=== PATIENT | female | born 1975 | race Caucasian/White ===

== ENCOUNTER 2017-12-08 02:05 | Emergency (ER) | payer OTHER ==
[~2017-12-08] VITALS: Ht 175.3 cm; Wt 90.7 kg
[2017-12-08] MEDS ORDERED: CYMBALTA60 MG PO (02:47)
[2017-12-08] MEDS ORDERED: ASPIR 8181 MG PO (02:47)
[2017-12-08] MEDS ORDERED: LORATIDINE 10 M10 M1 PO (02:48)
[2017-12-08] MEDS ORDERED: IRBESARTAN75 MG PO (02:48)
[2017-12-08] MEDS ORDERED: CRESTOR20 MG PO (02:49)
[2017-12-08] MEDS ORDERED: PHILLIPS' COLO1 EACH PO (02:49)
[2017-12-08] MEDS ORDERED: NOVOLOG100 UNIT/1 SUBQ ×2 (02:51→02:54)
[2017-12-08] MEDS ORDERED: LEVAQUIN 500 M500 M2 PO (02:52)
[2017-12-08] MEDS ORDERED: IPRAT-ALBUT 0.5-3 ML INH (02:53)
[2017-12-08] MEDS ORDERED: NYAMYC15 GM TOP (02:54)
[2017-12-08] MEDS ORDERED: MIRALAX17 GM PO (02:55)
[2017-12-08] MEDS ORDERED: VOLTAREN GEL 1100 GM TOP (02:56)
[2017-12-08] MEDS ORDERED: ARTIFICIAL TEA1 EACH (02:57)
[2017-12-08] MEDS ORDERED: ANTI-ITCH28 G1 TOP (02:57)
[2017-12-08] MEDS ORDERED: MILK OF MA400 MG/5 M PO (02:58)
[2017-12-08] MEDS ORDERED: TESSALON PERLE100 MG PO (02:58)
[2017-12-08] MEDS ORDERED: ZOFRAN4 MG PO (02:59)
[2017-12-08] MEDS ORDERED: KEFLEX500 M1 PO (03:01)
[2017-12-08] MEDS ORDERED: TRAMADOL 50 MG50 MG PO (03:01)
[2017-12-08 04:25] VITALS: BP 132/74
== END 2017-12-08 06:03 | disposition home or self-care (01) ==
LOC: ER 02:05 → EDBD 02:05 → ER 06:03
DX: S63.257A Unspecified dislocation of left little finger, initial encounter (principal); S80.01XA Contusion of right knee, initial encounter; S50.311A Abrasion of right elbow, initial encounter; W17.89XA Other fall from one level to another, initial encounter; Y93.89 Activity, other specified; Y92.89 Other specified places as the place of occurrence of the external cause; Y99.8 Other external cause status

== ENCOUNTER 2018-03-28 13:30 | Inpatient (IN) | payer OTHER ==
[2018-03-28] VITALS (14 sets, daily range): BP systolic 125–180; BP diastolic 61–96
[~2018-03-28] VITALS: Ht 160 cm; Wt 84.1 kg
--- NOTE | ~2018-03-28 | EKG ---
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
--- NOTE | ~2018-03-28 | HC ---
[facility] [place] [address] CONSULTATION Name: SEBLEVALENTINO Room #: 349-I ADM IN .R.#: [id number] Admission: 03/28/18 Attend Phys: Jacky Woods MD Discharge: Date of : 75 Report #: [id number] THIS REPORT FOR: //name// CC: Jacky Woods [facility] physician/PCP DATE OF SERVICE: 03/30/2018 INFECTIOUS DISEASE CONSULTATION: REASON FOR CONSULTATION: I was asked to evaluate concerning hemoptysis in the setting of right lung aspergillosis. HISTORY OF PRESENT ILLNESS: The patient is a 42-year-old who typically gets her care at [facility], is admitted with increasing hemoptysis. About a year ago, was diagnosed with pneumonia. She had a cavitary right upper lobe lesion. Several months ago, was diagnosed with aspergillosis involving the right upper lobe. This was diagnosed from bronchoscopy where she had a biopsy performed. She states that Aspergillus was identified from the tissue. She was treated with voriconazole. The specific duration is not yet clear at this point. She has been on 200 mg b.i.d. Denies any fever, chills or sweats. She has had about a 10-pound weight loss over the last 6 months. She has had significant amount of bloody sputum production. Because of her hemoptysis, she was admitted through the Emergency Room. No pleuritic chest pain. No dyspnea. Appetite has been reasonable. No aspiration symptoms. Denies any previous underlying lung disease, although she states she had asthma at age 88 years old but grew out of this. She is a smoker of cigarettes, having recently stopped her usage. No alcohol use or aspiration episodes noted. ALLERGIES: None known. MEDICATIONS: As noted on her MAR, now on vancomycin, meropenem and voriconazole. PAST MEDICAL HISTORY: Schizoaffective disorder, depression, obesity, gastroesophageal reflux, diabetes and hyperlipidemia. FAMILY HISTORY: Noncontributory. SOCIAL HISTORY: As noted above. She now resides in a fci. REVIEW OF SYSTEMS: CONSTITUTIONAL: Denies any fever, chills or sweats. EYES: No visual changes. Tolerating voriconazole without issue. EARS: No change in her hearing or tinnitus. MOUTH: Without lesion, pharyngitis symptoms, dental issues. [address] [address] CONSULTATION Name: VALENTINO PRUETT [facility] .R.#: [id number] Admission: 03/28/18 Attend Phys: Jacky Woods MD Discharge: Date of : 75 Report #: [id number] LYMPH: Negative. RESPIRATORY: As above. CARDIOVASCULAR: Without palpitations, syncope, peripheral edema. GASTROINTESTINAL: Negative. GENITOURINARY: Negative. JOINTS: Negative. SKIN: Without rash. NEUROLOGIC: Negative. PSYCHIATRIC: No symptoms of depression or anxiety at this point. PHYSICAL EXAMINATION: GENERAL: Alert and cooperative. She is a good historian. No evidence of anxiety or depression. Well developed, well nourished, appeared her stated age. VITAL SIGNS: Stable with no hypertension. SKIN: Without rash. HEENT: Eyes without scleral icterus or conjunctivitis. Mouth without lesion or mucositis. NECK: Supple, no thyromegaly or mass. LYMPH: No palpable adenopathy. LUNGS: Clear bilaterally with no consolidation or rub. HEART: Regular, without murmur, gallop or rub. ABDOMEN: Soft, nontender, no hepatosplenomegaly or mass. Moderately obese. EXTREMITIES: No peripheral edema. No cyanosis. Did have some changes of venous stasis disease involving her pretibial skin. NEUROLOGIC: Alert and cooperative. Cranial nerves intact. Strength in upper and lower extremities normal. Sensation normal. PSYCHIATRIC: Normal mood. LABORATORY STUDIES: Sputum cultures pending. Blood cultures are negative to date. Hemoglobin 8, platelet count 347,000, WBC 3.9, 74% segs. Sodium 138, potassium 4, bicarbonate 26, creatinine 0.7. Vancomycin trough was 14. MRSA screen negative. Urinalysis unremarkable. CT scan of the chest showed right upper lobe cavitary lesion about 8 x 8 cm of pulmonary infiltrate with cavitation. IMPRESSION: 1. Chronic cavitary aspergillosis right upper lobe with associated hemoptysis. Had not seen the tissue diagnosis from [facility] yet. Had not seen her microbiology reports yet. I am suspecting this is the cause of her hemoptysis. Underlying tobacco use by history. 2. Gastroesophageal reflux. 3. Depression, schizoaffective disorder. 4. Obesity. 5. Diabetes. RECOMMENDATION: We will continue antibiotic coverage in addition to her [facility] [address] [place] [address] CONSULTATION Name: VALENTINO PRUETT Room #: 349-I ADM IN ..#: [id number] Admission: 03/28/18 Attend Phys: Jacky Woods MD Discharge: Date of : 75 Report #: [id number] antifungal coverage. I would like to confirm her diagnosis from the studies done at [facility]. Agree with having cardiothoracic surgical evaluation. May also consider embolization of the area of bleeding as a first line before attempting lung resection. We will discuss further with Pulmonary Medicine. <ELECTRONICALLY SIGNED> By: Nando Gross MD 03/31/18 0839 1307 [id number] Nando Gross MD /nt
[~2018-03-28 13:30] MED LIST: ANTI-ITCH28 G1 TOP; ARTIFICIAL TEA1 EACH; ASPIR 8181 MG PO; CRESTOR20 MG PO; CYMBALTA60 MG PO; IPRAT-ALBUT 0.5-3 ML INH; IRBESARTAN75 MG PO; KEFLEX500 M1 PO; LEVAQUIN 500 M500 M2 PO; LORATIDINE 10 M10 M1 PO; MILK OF MA400 MG/5 M PO; MIRALAX17 GM PO; NOVOLOG100 UNIT/1 SUBQ; NYAMYC15 GM TOP; PHILLIPS' COLO1 EACH PO; TESSALON PERLE100 MG PO; TRAMADOL 50 MG50 MG PO; VOLTAREN GEL 1100 GM TOP; ZOFRAN4 MG PO
[2018-03-28 15:11] LABS: URINE BILIRUBIN NEGATIVE (Negative); URINE BLOOD NEGATIVE (Negative); URINE CLARITY CLEAR; URINE COLOR YELLOW; URINE GLUCOSE-RANDOM* NEGATIVE (Negative); URINE KETONES NEGATIVE (Negative); URINE LEUKOCYTES-REFLEX NEGATIVE (Negative); URINE NITRITE-REFLEX NEGATIVE (Negative); URINE PROTEIN (DIPSTICK) NEGATIVE (Negative); URINE UROBILINOGEN 0.2 E.U./dl (0.2-1.0)
[2018-03-28 15:13] LABS: HEMATOCRIT 29.3 % (37.0-47.0); HEMOGLOBIN 9.5 gm/dL (12.0-15.0); MCH 26.9 pg (26.0-34.0); MCHC 32.6 g/dL (28.0-37.0); MCV 82.5 fL (80.0-100.0); PLATELET COUNT 412 thou/uL (150-400); RBC 3.55 mil/uL (4.20-5.00); RDW 20.7 % (10.5-14.5); WBC 5.3 thou/uL (4.0-11.0)
[2018-03-28 15:27] LABS: ANION GAP 6 mmol/L (7-16); BUN 11 mg/dL (7-18); CALCIUM 9.3 mg/dL (8.5-10.1); CHLORIDE 104 mmol/L (98-107); CO2 29 mmol/L (21-32); CREATININE 0.8 mg/dL (0.6-1.0); POTASSIUM 3.7 mmol/L (3.5-5.1); SODIUM 139 mmol/L (136-145)
[2018-03-28 15:29] LABS: GLUCOSE 31 mg/dL (74-106); PROTIME 10.7 Seconds (9.3-11.4)
[2018-03-28 15:36] LABS: ALBUMIN 3.2 g/dL (3.4-5.0); SGOT 12 U/L (15-37); SGPT 16 U/L (30-65); TOTAL BILIRUBIN 0.2 mg/dL (<0.1-1.0); TOTAL PROTEIN 7.5 g/dL (6.4-8.2); TROPONIN-I <0.06 ng/mL (<0.06)
[2018-03-28 15:41] LABS: ABSOLUTE NEUTROPHILS 1.9 thou/uL (1.4-8.2)
[2018-03-28 15:42] LABS: ANISOCYTOSIS 2+
[2018-03-28 18:18] LABS: HEMATOCRIT 25.1 % (37.0-47.0); HEMOGLOBIN 8.3 gm/dL (12.0-15.0)
[2018-03-28] MEDS ORDERED: LAMICTAL 25 MG25 M1 PO (22:30)
[2018-03-28] MEDS ORDERED: VFEND 200 MG T200 M1 PO (22:33)
[2018-03-28] MEDS ORDERED: ASPIRIN81 M2 PO (22:34)
[2018-03-28] MEDS ORDERED: REMERON15 MG PO (22:36)
[2018-03-28] MEDS ORDERED: QUETIAPINE FUM100 MG PO (22:37)
[2018-03-28] MEDS ORDERED: ZANTAC 150MG T150 MG PO (22:38)
[2018-03-28] MEDS ORDERED: HUMALOG100 UNIT/1 SUBQ ×2 (22:41→22:53)
[2018-03-28] MEDS ORDERED: LANTUS SUBQ (22:43)
[2018-03-28] MEDS ORDERED: TYLENOL325 MG PO (22:44)
[2018-03-28] MEDS ORDERED: VOLTAREN GEL 1100 G2 TOP (22:46)
[2018-03-28] MEDS ORDERED: HYDROCODONE-ACE15 ML PO (22:49)
[2018-03-28] MEDS ORDERED: LUBRICANT 0.5-1 EACH OPHTHALMIC (22:51)
[2018-03-28] MEDS ORDERED: AMBIEN 5 MG TABL5 M1 PO (22:54)
[2018-03-29] VITALS (16 sets, daily range): BP systolic 104–147; BP diastolic 54–86
[2018-03-29 03:55] LABS: CALCIUM 8.6 mg/dL (8.5-10.1); CREATININE 0.8 mg/dL (0.6-1.0); POTASSIUM 3.8 mmol/L (3.5-5.1)
[2018-03-29 04:34] LABS: HEMATOCRIT 26.6 % (37.0-47.0); HEMOGLOBIN 8.4 gm/dL (12.0-15.0); MCH 26.5 pg (26.0-34.0); MCHC 31.7 g/dL (28.0-37.0); MCV 83.7 fL (80.0-100.0); PLATELET COUNT 364 thou/uL (150-400); RBC 3.17 mil/uL (4.20-5.00); RDW 20.9 % (10.5-14.5); WBC 4.4 thou/uL (4.0-11.0)
[2018-03-29 05:14] LABS: ABSOLUTE NEUTROPHILS 1.8 thou/uL (1.4-8.2); ANISOCYTOSIS 2+; ATYPICAL LYMPHS 2 %; LARGE PLATELETS FEW
[2018-03-30 03:55] VITALS: BP 112/63
[2018-03-30 07:14] LABS: ABSOLUTE NEUTROPHILS 2.9 thou/uL (1.4-8.2); BASOPHILS 0.1 % (0.0-2.0); HEMATOCRIT 25.4 % (37.0-47.0); LYMPHOCYTES 18.2 % (24.0-44.0); MCH 26.2 pg (26.0-34.0); MCHC 31.3 g/dL (28.0-37.0); MONOCYTES 7.5 % (1.0-8.0); PLATELET COUNT 347 thou/uL (150-400); POLYS 74.2 % (36.0-66.0); RBC 3.03 mil/uL (4.20-5.00); RDW 21.2 % (10.5-14.5); WBC 3.9 thou/uL (4.0-11.0)
[2018-03-30 07:15] VITALS: BP 119/70
[2018-03-30 07:16] LABS: CALCIUM 8.9 mg/dL (8.5-10.1); CREATININE 0.7 mg/dL (0.6-1.0)
[2018-03-30 08:51] LABS: ANISOCYTOSIS 1+; PLATELET ESTIMATE NORMAL
[2018-03-30 11:31] VITALS: BP 124/60
[2018-03-30 15:22] VITALS: BP 102/57
[2018-03-30 19:20] VITALS: BP 123/63
[2018-03-31 04:15] VITALS: BP 126/71
[2018-03-31 07:30] VITALS: BP 112/66
[2018-03-31 11:39] VITALS: BP 141/69
[2018-03-31 15:25] VITALS: BP 148/78
[2018-03-31 16:55] VITALS: BP 145/82
[2018-03-31 19:10] VITALS: BP 121/61
[2018-04-01 04:00] VITALS: BP 118/78
[2018-04-01 08:23] VITALS: BP 131/80
[2018-04-01 13:08] VITALS: BP 124/74
[2018-04-01 18:13] VITALS: BP 119/77
[2018-04-01 18:22] VITALS: BP 127/69
[2018-04-01 19:20] VITALS: BP 120/67
[2018-04-02] VITALS (7 sets, daily range): BP systolic 117–165; BP diastolic 69–95
[2018-04-02 06:26] LABS: HEMATOCRIT 26.9 % (37.0-47.0); HEMOGLOBIN 8.7 gm/dL (12.0-15.0); MCH 27.1 pg (26.0-34.0); MCHC 32.4 g/dL (28.0-37.0); MCV 83.4 fL (80.0-100.0); PLATELET COUNT 277 thou/uL (150-400); RBC 3.22 mil/uL (4.20-5.00); RDW 21.4 % (10.5-14.5); WBC 6.4 thou/uL (4.0-11.0)
[2018-04-02 07:46] LABS: ABSOLUTE NEUTROPHILS 3.3 thou/uL (1.4-8.2); ANISOCYTOSIS 2+; METAMYELOCYTES 1 %; NUCLEATED RBCS 2 /100WBC; POLYCHROMASIA SLIGHT
[2018-04-03 04:44] VITALS: BP 136/84
[2018-04-03 07:32] VITALS: BP 109/58
[2018-04-03 10:44] VITALS: BP 119/75
[2018-04-03 17:04] VITALS: BP 131/65
== END 2018-04-03 17:22 | DRG 867 ==
LOC: ER 13:30 → EROBS 16:25 → 2N 18:13 → ICU 21:18 → 3W 03-29 16:01
PROVIDERS: Hospitalist; Physician Assistant
PROC: B54MZZA Ultrasonography of Right Upper Extremity Veins, Guidance (ICD-10-PCS; principal; 2018-03-29)
PROC: 05HB33Z Insertion of Infusion Device into Right Basilic Vein, Percutaneous Approach (ICD-10-PCS; principal; 2018-03-29)
DX: B44.89 Other forms of aspergillosis (principal); J96.01 Acute respiratory failure with hypoxia; D62 Acute posthemorrhagic anemia; R04.2 Hemoptysis; E66.9 Obesity, unspecified; K21.9 Gastro-esophageal reflux disease without esophagitis; E78.5 Hyperlipidemia, unspecified; E11.649 Type 2 diabetes mellitus with hypoglycemia without coma; F25.0 Schizoaffective disorder, bipolar type; Z79.82 Long term (current) use of aspirin; Z79.899 Other long term (current) drug therapy; Z28.21 Immunization not carried out because of patient refusal; Z68.32 Body mass index [BMI] 32.0-32.9, adult
CPT/HCPCS: 10078; 10879; 27000

== ENCOUNTER → 2018-07-21 | Outpatient (CLI) | payer OTHER ==
[~2018-07-21] MED LIST changes: +AMBIEN 5 MG TABL5 M1 PO; +ASPIRIN81 M2 PO; +HUMALOG100 UNIT/1 SUBQ; +HYDROCODONE-ACE15 ML PO; +LAMICTAL 25 MG25 M1 PO; +LANTUS SUBQ; +LUBRICANT 0.5-1 EACH OPHTHALMIC; +QUETIAPINE FUM100 MG PO; +REMERON15 MG PO; +TYLENOL325 MG PO; +VFEND 200 MG T200 M1 PO; +VOLTAREN GEL 1100 G2 TOP; +ZANTAC 150MG T150 MG PO
== END ==
LOC: RAD 11:42
DX: J90 Pleural effusion, not elsewhere classified (principal); S22.42XD Multiple fractures of ribs, left side, subsequent encounter for fracture with routine healing; X58.XXXD Exposure to other specified factors, subsequent encounter

== ENCOUNTER → 2018-08-02 | Outpatient (CLI) | payer OTHER ==
--- NOTE | 2018-08-11 00:02 | SLE ---
[facility] [place] [address] POLYSOMNOGRAPHY STUDY Name: VALENTINO PRUETT Room #: [facility].#: [id number] Admission: 08/02/18 ������������������ Attend Phys: Tanvir Blackwell MD Discharge: ������������������ Date of : 75 Report #: [id number] THIS REPORT FOR: //name// CC: Tanvir Lim MD DATE OF SERVICE: 08/02/2018 ATTENDING PHYSICIAN: Lele Lim MD INDICATIONS: The patient is 43 years old who weighs 188 pounds with a BMI of 31.3. The patient's Benedict score was 9. The patient also takes triazolam, Seroquel, Remeron and morphine which were held the night before the study. A diagnostic polysomnogram was performed at [facility]. INTERPRETATION: During the night study, the patient spent 429 minutes in bed and slept for 229 minutes with a low sleep efficiency of 53%. Sleep latency was prolonged at 61.7 minutes with a REM latency of 340 minutes. Overall, sleep architecture showed increased stage 1 sleep, normal stage 2 sleep, absent N3 sleep and normal REM sleep, which was 17.5% of total sleep time. During the night study, the patient had 1 obstructive apnea, no central or mixed apneas and 151 hypopneas. The patient's apnea-hypopnea index was 39.8 per hour with a REM index of 27 per hour and a supine index of 53.8 per hour. EKG monitoring revealed an average heart rate of 91 beats per minute with a maximum 106 beats per minute. No sustained arrhythmias were observed. No clinically significant PLMS seen. Nocturnal oximetry study revealed an average oxygen saturation of 90%, the lowest was 73%. 60 minutes were spent in oxygen saturation of less than 89%. Due to the limited sleep time, CPAP could not be initiated. IMPRESSION: 1. Severe sleep apnea-hypopnea syndrome with an apnea-hypopnea index of 39.8 per hour. 2. Reduced sleep efficiency resulting from sleep onset and sleep maintenance insomnia. 3. No clinically significant periodic limb movements during sleep. 4. Nocturnal hypoxia secondary to obstructive sleep apnea. RECOMMENDATION: 1. The patient would benefit from treatment of sleep apnea with in-lab CPAP [facility] [address] [place] [address] POLYSOMNOGRAPHY STUDY Name: VALENTINO PRUETT Room #: [facility].#: [id number] Admission: 08/02/18 ������������������ Attend Phys: Tanvir Blackwell MD Discharge: ������������������ Date of : 75 Report #: [id number] titration study. 2. Once optimal CPAP pressure is achieved, then follow up in 4-6 weeks to assess compliance and to document clinical improvement. 3. Avoid RAG SHREDDER depressants. 4. Cautioned regarding driving until symptoms of sleep apnea resolve with the use of CPAP. 5. If the patient's insomnia persists despite effective use of CPAP, then it should be evaluated and treated according to the etiology. ��������������������������������������������� <ELECTRONICALLY SIGNED> ���������������������������������������� By: Lemuel Perez MD ��������������������������������������������� 08/11/18 0002 1730 1915 Lemuel Perez MD /nt
== END ==
LOC: SLEEPLAB 14:14
DX: G47.33 Obstructive sleep apnea (adult) (pediatric) (principal); R09.02 Hypoxemia

== ENCOUNTER → 2018-08-25 | Outpatient (CLI) | payer OTHER ==
--- NOTE | 2018-08-28 07:55 | SLE ---
[facility] [place] [address] POLYSOMNOGRAPHY STUDY Name: VALENTINO PRUETT Room #: [facility].#: [id number] Admission: 08/25/18 ������������������ Attend Phys: Tanvir Blackwell MD Discharge: ������������������ Date of : 75 Report #: [id number] THIS REPORT FOR: //name// CC: Tanvir Lim MD DATE OF SERVICE: 08/25/2018 ATTENDING PHYSICIAN: Dr. Lele Lim. The patient is a 43-year-old who weighs 188 pounds with a BMI of 31.3. The patient had severe sleep apnea diagnosed by home sleep study recently with an AHI of 39 per hour. The patient underwent in-lab CPAP titration study performed at [facility]. During the night study, the patient spent 402 minutes in bed and slept for 306 minutes with a sleep efficiency of 76%. Sleep latency was 20 minutes with a REM latency of 264 minutes. Overall sleep architecture showed increased stage 1 and stage 2 sleep, absent N3 sleep and reduced REM sleep, which was only 2.6% of the total sleep time. EKG monitoring revealed an average heart rate of 82 beats per minute. No sustained arrhythmias were observed. No clinically significant PLMS observed. The patient was started on CPAP initially at 5 cm water and titrated up to 13 cm water. At that pressure, the patient's respiratory events persisted and the patient was getting intolerant to higher CPAP pressures. As a result, the patient was switched to BiPAP at a pressure of 15/11 and titrated up to 18/13. At this final pressure, the patient slept for 36 minutes. The patient's AHI was reduced to only 4.9 per hour. The patient had supine sleep throughout, but no REM sleep observed. Overall REM was significantly reduced to less than 3%. The patient's oxygen saturation remained above 90% at this final BiPAP pressure. IMPRESSION: 1. Severe sleep apnea diagnosed by previous home sleep study. 2. No clinically significant periodic limb movements of sleep. RECOMMENDATIONS: 1. BiPAP at 18/13 significantly eliminated the patient's sleep apnea and should be used on a nightly basis. 2. Follow up in 4-6 weeks to assess compliance with BiPAP and to document clinical improvement. 3. Weight loss is strongly advised. [address] [address] POLYSOMNOGRAPHY STUDY Name: VALENTINO PRUETT [id number] Admission: 08/25/18 ������������������ Attend Phys: Tanvir Blackwell MD Discharge: ������������������ Date of : 75 Report #: [id number] 4. Avoid CLINICAL DATA MANAGEMENT MANAGER depressants. 5. Cautioned regarding driving until symptoms of sleep apnea have resolved with the use of BiPAP. ��������������������������������������������� <ELECTRONICALLY SIGNED> ���������������������������������������� By: Lemuel Perez MD ��������������������������������������������� 08/28/18 0755 [id number] [id number] Lemuel Perez MD /nt
== END ==
LOC: SLEEPLAB 17:29
DX: G47.33 Obstructive sleep apnea (adult) (pediatric) (principal)